=== PATIENT | female | born 1955 | race Caucasian/White ===

== ENCOUNTER 2022-09-17 06:28 | Day surgery (SDC) | payer OTHER ==
[2022-09-15 09:30] LABS: Potassium 3.4 mmol/L (3.5-5.1)
--- NOTE | 2022-09-16 16:59 | EKG ---
Test Date: 2022-09-15 Test Time: 08:53:19 Senior Case Manager: FRANCO MEASUREMENT RESULTS: Intervals: Rate: 64 SD: 172 QRSD: 94 QT: 442 QTc: 455 [place]: P: 71 SD: 172 QRS: 66 T: 43 INTERPRETIVE STATEMENTS: Normal sinus rhythm Normal ECG No previous ECG available for comparison Electronically Signed On 09-16-22 16:55:14 [employer] by William Duarte
[2022-09-17] MEDS ORDERED: Ringers Lactate 1,000 ML IV ONE (07:01)
[2022-09-17] MEDS ORDERED: CEFAZOLIN SODIUM 1 GM/VIAL ONE (07:01)
[2022-09-17] MEDS ORDERED: propofoL 200 MG/20 ML VIAL IV ONE (07:27)
[2022-09-17] MEDS ORDERED: FENTANYL CITR 100 MCG/2 ML ONE (07:28)
[2022-09-17] MEDS ORDERED: LIDOCAINE 2% MPF 5 ML VIAL ONE (07:29)
[2022-09-17] MEDS ORDERED: MIDAZOLAM HCL 2 MG/2 ML INJ ONE (07:30)
[2022-09-17] MEDS ORDERED: ONDANSETRON 4 MG/2 ML VIAL ONE (07:30)
[2022-09-17] MEDS ORDERED: dexAMETHasone 4 MG/ML VIAL ONE (07:51)
--- NOTE | 2022-09-17 08:23 | P.OP ---
Preoperative diagnosis: RIGHT Posterior Arm Sebaceous Cyst Postoperative diagnosis: RIGHT Posterior Arm Sebaceous Cyst Primary procedure: Wide local excision of RIGHT Posterior Arm Sebaceous Cyst Anesthesia: GETA + Local Estimated blood loss: <5cc Specimen: Sebaceous Cyst Findings: ~5cm round cyst extending to fascia and muscle Complications: None Transferred to: Recovery Room Condition: Good
[2022-09-17] MEDS: MORPHINE 4 MG/ML SYR ONE ×3 (08:48→08:53)
[2022-09-17 09:03] VITALS: O2SAT 96
[2022-09-17] MEDS ORDERED: HYDROCODONE/APAP 7.5/325 MG TAB ONE (09:47)
[2022-09-17 10:56] VITALS: BP 120/76; TEMP 96.7
--- NOTE | 2022-09-17 18:47 | OP ---
Date of Procedure: 09/17/2022 Surgeon: Boris Echevarria MD, Preoperative Diagnosis: Right posterior arm sebaceous cyst. Postoperative Diagnosis: Right posterior arm sebaceous cyst. Procedure: Wide local excision of right posterior arm sebaceous cyst. Anesthesia: General endotracheal plus local with 0.25% Marcaine. Estimated Blood Loss: Less than 5 cc. Specimen: Sebaceous cyst. Findings: Approximately 5 cm round cyst extending into the fascia and muscle. Complications: None. The patient was transferred to recovery room in good condition. Procedure In Detail: After informed consent was obtained, the patient was brought to the operating r oom and prepped and draped in the usual sterile fashion. After adequate anesthesia was achieved, I m xena an elliptical incision around an area of obvious sebaceous cyst material down to subcutaneous tis sues using a 15 blade. I immediately encountered a large sebaceous cyst approximately 5 cm round in consistency. Using a combination of both sharp and blunt dissection circumferentially to dissect cisco n the cyst and sebaceous material, which was then removed in its entirety including the sac. The cav ity and cystic structure extended all the way and was attached firmly to the fascia overlying the mus marisol and was taken with this fascia overlying the muscle, but no muscular involvement was appreciated. After this was removed in its entirety, it was sent off for pathologic examination. The area was c opiously irrigated. Hemostasis was achieved with electrocautery. The area was then irrigated once a gain and closed with interrupted 2-0 nylon sutures and a quarter-inch iodoform packing wick was place d inside and pressure dressing was applied. The patient tolerated procedure without evidence of any complication and transferred to PACU in good condition. All counts were correct at the end of the ca se. TK/MODL Voice ID: [id number] Report ID: [id number]
== END 2022-09-17 10:20 | disposition home or self-care (01) ==
LOC: OR 06:28
PROVIDERS: ATTEND Surgery
PROC: 0JBD0ZZ Excision of Right Upper Arm Subcutaneous Tissue and Fascia, Open Approach (ICD-10-PCS; principal; 2022-09-17 07:30)
DX: L72.0 Epidermal cyst (principal)
CPT/HCPCS: 36415; 80048; 88304; 93005; J0690; J1100; J2001; J2250; J2405; J2704; J3010; J7120